=== PATIENT | male | born 1955 | race Caucasian/White ===

== ENCOUNTER 2019-05-29 09:17 | Emergency (ER) | payer OTHER ==
[~2019-05-29] VITALS: Ht 185.4 cm; Wt 112.3 kg
[2019-05-29] MEDS ORDERED: ZYLOPRIM 100MG100 MG PO (09:36)
[2019-05-29] MEDS ORDERED: LIPITOR 40MG TA40 MG PO (09:37)
[2019-05-29] MEDS ORDERED: GOOD NEIGHBOR500 M2 PO (09:37)
[2019-05-29] MEDS ORDERED: ADULT ASPIRIN R81 MG PO (09:37)
[2019-05-29] MEDS ORDERED: NORCO 325 MG-51 TA1 PO (10:14)
[2019-05-29 10:40] VITALS: BP 153/99
== END 2019-05-29 10:38 | disposition home or self-care (01) ==
LOC: ED 09:17
DX: S43.401A Unspecified sprain of right shoulder joint, initial encounter (principal); I10 Essential (primary) hypertension; Z79.82 Long term (current) use of aspirin; W18.30XA Fall on same level, unspecified, initial encounter; Y92.69 Other specified industrial and construction area as the place of occurrence of the external cause; Y99.0 Civilian activity done for income or pay
CPT/HCPCS: J1885

== ENCOUNTER → 2021-07-25 | Outpatient (CLI) | payer BC ==
[~2021-07-25] MED LIST: ADULT ASPIRIN R81 MG PO; GOOD NEIGHBOR500 M2 PO; LIPITOR 40MG TA40 MG PO; NORCO 325 MG-51 TA1 PO; ZYLOPRIM 100MG100 MG PO
== END ==
LOC: RAD 09:27
DX: M43.16 Spondylolisthesis, lumbar region (principal); M51.36 Other intervertebral disc degeneration, lumbar region; M47.816 Spondylosis without myelopathy or radiculopathy, lumbar region